=== PATIENT | male | born 1955 | race Hispanic/Latino ===

== ENCOUNTER 2017-02-12 17:23 | Emergency (ER) | payer SELFPAY ==
[2017-02-12 17:23] VITALS: BMI 34.0
[2017-02-12 17:33] VITALS: BP 140/98; PULSE 75; RESP 16; TEMP 98.3; O2SAT 99
--- NOTE | 2017-02-12 17:41 | ED PDOC ---
Lower Extremity Pain/Injury Time Seen by Provider: 02/12/17 17:36 Chief Complaint (Nursing): Lower Extremity Problem/Injury Chief Complaint (Provider): Left calf pain History Per: Patient History/Exam Limitations: no limitations Current Symptoms Are (Timing): Still Present Severity: Moderate Additional Complaint(s): Uvaldo Guadalupe is a 61 y/o male presenting to the ER on 02/12/2017 with complaints of left calf pain onset this morning. Patient reports he heard a popping noise in his left calf, which he believes is a "constance horse," while walking to work this morning at 08:00 am. Pain has not improved since onset, prompting him to seek medical evaluation. Patient is able to ambulate without and bear weight but with pain. He did not take any pain medications prior to arrival. He rates current pain as 7/10. Past Medical History Reviewed: Historical Data, Nursing Documentation, Vital Signs Vital Signs: Last Vital Signs Temp 98.3 F 02/12/17 17:31 Pulse 75 02/12/17 17:31 Resp 16 02/12/17 17:31 BP 140/98 H 02/12/17 17:31 Pulse Ox 99 02/12/17 17:31 - Medical History PMH: Atrial Fibrillation, Diabetes (diet controlled), HTN - Surgical History Other surgeries: left testicle surgery - Family History Family History: States: No Known Family Hx - Living Arrangements Living Arrangements: With Family - Social History Current smoker - smoking cessation education provided: No Alcohol: None Drugs: Denies - Home Medications Home Medications: Ambulatory Orders Medication Instructions Recorded Metformin ER [Glucophage XR] 500 mg PO DAILY 01/03/16 Vitamin B Complex [Super B-50 1 cap PO DAILY 01/03/16 Complex] Aspirin [Ecotrin] 81 mg PO DAILY #0 tabec 01/04/16 Metoprolol Tartrate [Lopressor] 25 mg PO Q12 #0 tab 01/04/16 Polymyxin/Trimethoprim Sulfate 100 drop OD BID #1 bottle 03/08/16 [Polytrim Ophth Soln] Cyclobenzaprine [Cyclobenzaprine 10 mg PO TID PRN #20 tab 02/12/17 HCl] Naproxen [Naprosyn] 500 mg PO BID #20 tab 02/12/17 - Allergies Allergies/Adverse Reactions: Allergies Allergy/AdvReac Type Severity Reaction Status Date / Time Iodine and Iodide Containing Allergy RASH Verified 12/11/15 14:39 Produc Wells Criteria for PE - Wells Criteria for Pulmonary Embolism Clinical Signs and Symptoms of DVT: Yes P.E is #1 Diagnosis, or Equally Likely: No Heart Rate >100: No Immobilization at least 3 days;Surgery previous 4 weeks: No Previous, objectively diagnosed PE or DVT: No Hemoptysis: No Malignancy w/treatment within 6 months, or palliative: No Total Score: 3 Review of Systems ROS Statement: Except As Marked, All Systems Reviewed And Found Negative Constitutional: Negative for: Fever, Chills Cardiovascular: Negative for: Chest Pain Respiratory: Negative for: Cough, Shortness of Breath Gastrointestinal: Negative for: Nausea, Vomiting Musculoskeletal: Positive for: Leg Pain ((+) left calf ) Neurological: Negative for: Weakness, Numbness Physical Exam - Reviewed Nursing Documentation Reviewed: Yes Vital Signs Reviewed: Yes - Physical Exam Appears: Positive for: Non-toxic, No Acute Distress Skin: Positive for: Normal Color. Negative for: Rash Eye Exam: Positive for: Normal appearance Neck: Positive for: Painless ROM. Negative for: Pain On Movement Of Neck Cardiovascular/Chest: Positive for: Regular Rate, Rhythm. Negative for: Murmur Respiratory: Positive for: Normal Breath Sounds. Negative for: Respiratory Distress Extremity: Positive for: Normal ROM (full rom of left knee ), Tenderness ((+) left calf ), Swelling ((+) left calf ) Neurologic/Psych: Positive for: Alert, Oriented, Gait (steady ). Negative for: Motor/Sensory Deficits - ECG O2 Sat by Pulse Oximetry: 99 Pulse Ox Interpretation: Normal - Other Rad Doppler Left leg X-Ray: Read By Radiologist X-Ray Interpretation: no DVT Medical Decision Making Medical Decision Makin:36 Initial Impression- 61 y/o male with left calf pain Initial Plan- * Ultrasound Left leg * Toradol IM * Flexeril PO Doppler is negative for DVT. Patient feels better after meds given. Patient given crutches, rx naprosyn and flexeril and he was referred to ortho conference planner for follow up. See procedure note. RICE instructions given. Documented by Carol Camara, acting as a scribe for Antionette Garrido PA-C All medical record entries made by the Scribe were at my direction and personally dictated by me. I have reviewed the chart and agree that the record accurately reflects my personal performance of the history, physical exam, medical decision making, and the department course for this patient. I have also personally directed, reviewed, and agree with the discharge instructions and disposition. Procedures - Splinting Location: left calf Pre-Made Type: wendi wrap Pre-Proc Neuro Vasc Exam: normal Post-Proc Neuro Vasc Exam: normal Disposition - Clinical Impression Clinical Impression: Strain of calf muscle - Patient ED Disposition Is Patient to be Admitted: No Counseled Patient/Family Regarding: Studies Performed, Diagnosis, Need For Followup, Rx Given - Disposition Referrals: Nikita Moreira III, MD [Staff Provider] - Disposition: Routine/Home Disposition Time: 18:56 Condition: IMPROVED Additional Instructions: Ice, rest and elevate left leg. Take rx meds as directed as needed for pain. Follow up in 1-2 days with orthopedist. Prescriptions: Cyclobenzaprine [Cyclobenzaprine HCl] 10 mg PO TID PRN #20 tab PRN Reason: Muscle Spasm Naproxen [Naprosyn] 500 mg PO BID #20 tab Instructions: Muscle Strain (ED), Muscle Cramp (ED) Forms: [employer] ([place])
--- NOTE | 2017-02-12 18:49 | US ---
Left lower extremity ultrasound. Indication: sudden onset left calf pain Technique: Duplex ultrasound evaluation of the left lower extremity Comparison: None available Findings: There is normal flow, compressibility, and augmentation of the left common femoral, femoral, and popliteal veins. The left posterior tibial veins appear patent and compress normally Impression: No evidence of deep venous thrombosis in the left lower extremity.
== END 2017-02-12 19:07 | disposition home or self-care (01) ==
LOC: H.ER 17:23
DX: M62.838 Other muscle spasm (principal); E11.9 Type 2 diabetes mellitus without complications; I10 Essential (primary) hypertension; Z79.82 Long term (current) use of aspirin; Z79.84 Long term (current) use of oral hypoglycemic drugs; I48.91 Unspecified atrial fibrillation
CPT/HCPCS: 93971; 96372; 99283; J1885

== ENCOUNTER 2017-08-08 20:51 | Emergency (ER) | payer SELFPAY ==
[2017-08-08 20:51] VITALS: BMI 34.0
[2017-08-08 21:20] VITALS: BP 123/53; PULSE 68; RESP 16; TEMP 97.5; O2SAT 100
[2017-08-08] MEDS ORDERED: Naproxen 500 MG TAB PO STA (22:08)
--- NOTE | 2017-08-08 22:11 | ED PDOC ---
Upper Extremity Pain/Injury Time Seen by Provider: 08/08/17 21:24 Chief Complaint (Nursing): Finger,Hand,&Wrist History Per: Patient Additional Complaint(s): Patient presents to the emergency room complaining of pain, redness, swelling to the right third digit for the past few days, symptoms started after going to the nail salon. Reports no trauma, injury, fever, chills, discharge, decrease in range of motion. Past Medical History Vital Signs: Last Vital Signs Temp 97.5 F L 08/08/17 21: Pulse 68 08/08/17 21:18 Resp 16 08/08/17 21:18 BP 123/53 L 08/08/17 21: Pulse Ox 100 08/08/17 21:18 - Medical History PMH: Atrial Fibrillation, Cardia Arrhythmia (tachycardia 5-7 yrs ago; no current meds), Diabetes (diet controlled), HTN (states hx: htn, no meds over past 5 yrs), Hyperthyroidism, Hypothyroidism Denies: Chronic Kidney Disease - Family History Family History: States: Unknown Family Hx - Immunization History Hx Tetanus Toxoid Vaccination: Yes Hx Influenza Vaccination: Yes Hx Pneumococcal Vaccination: Yes - Home Medications Home Medications: Ambulatory Orders Medication Instructions Recorded Metformin ER [Glucophage XR] 500 mg PO DAILY 01/03/16 Vitamin B Complex [Super B-50 1 cap PO DAILY 01/03/16 Complex] Aspirin [Ecotrin] 81 mg PO DAILY #0 tabec 01/04/16 Metoprolol Tartrate [Lopressor] 25 mg PO Q12 #0 tab 01/04/16 Polymyxin/Trimethoprim Sulfate 100 drop OD BID #1 bottle 03/08/16 [Polytrim Ophth Soln] Cyclobenzaprine [Cyclobenzaprine 10 mg PO TID PRN #20 tab 02/12/17 HCl] Naproxen [Naprosyn] 500 mg PO BID #20 tab 02/12/17 Cephalexin [Keflex] 500 mg PO Q6 #28 capsule 08/08/17 - Allergies Allergies/Adverse Reactions: Allergies Allergy/AdvReac Type Severity Reaction Status Date / Time Iodine and Iodide Containing Allergy RASH Verified 12/11/15 14:39 Produc Review of Systems Constitutional: Negative for: Fever, Chills, Weakness Musculoskeletal: Negative for: Neck Pain, Shoulder Pain, Back Pain Skin: Negative for: Rash, Lesions, Jaundice Physical Exam - Physical Exam Comments: GENERAL APPEARANCE: Patient is awake, alert, oriented x 3, in mild painful distress. SKIN: Warm, (-) rash, (-) lesions. UPPER EXTREMITY: (+) Tenderness, (+) swelling, (+) erythema to the nail margin of the R 3rd digit, (-) ecchymosis; (-) crepitus, (-) deformity. Tendon function intact. (-) distal neurovascular deficit. 2 point discrimination intact. Remainder of hand, digits and wrist: (-) injury. - ECG O2 Sat by Pulse Oximetry: 100 Medical Decision Making Medical Decision Making: Prior to procedure "time out" was called in order to confirm the correct patient and procedure - incision and drainage of paronychia to the R 3rd digit. Through aseptic technique, local anesthesia was administered, paronychia was incised and drain of purulent material by PA. Patient tolerated the procedure well. Clean dressing was applied. patient medicated with Keflex 500 mg by mouth, naproxen 500 mg by mouth and tdap IM. Based on history and exam, plan will be for outpatient follow-up. Advised to follow up with primary care physician in 1-2 days without fail. Advised to take medication as prescribed. Return to the emergency room at any time for any new or worsening symptoms. Patient states he fully agrees with and understands discharge instructions. States that he agrees with the plan and disposition. Verbalized and repeated discharge instructions and plan. I have given the patient opportunity to ask any additional questions. Disposition - Clinical Impression Clinical Impression: Paronychia - Patient ED Disposition Is Patient to be Admitted: No Counseled Patient/Family Regarding: Diagnosis, Need For Followup, Rx Given - Disposition Disposition: Routine/Home Disposition Time: 22:13 Condition: STABLE Additional Instructions: Thank you for letting us take care of you today. You were treated for paronychia. The emergency medical care you received today was directed at your acute symptoms. If you were prescribed any medication, please fill it and take as directed. It may take several days for your symptoms to resolve. Return to the Emergency Department if your symptoms worsen, do not improve, or if you have any other problems. Please contact your doctor in 2 days for re-evaluation and follow up. Bring any paperwork you were given at discharge with you along with any medications you are taking to your follow up visit. Our treatment cannot replace ongoing medical care by a primary care provider (PCP) outside of the emergency department. Thank you for allowing the [facility] team to be part of your care today. Prescriptions: Cephalexin [Keflex] 500 mg PO Q6 #28 capsule Instructions: Paronychia (ED) Forms: [employer] ([place]), [facility] ED School/Work Excuse Print Language: TAJIK - PA / [employer] EXECUTIVE / Resident Statement MD/DO has reviewed & agrees with the documentation as recorded.
[2017-08-08] MEDS ORDERED: Naproxen 500 MG TAB PO ONE ×2 (22:14→22:37)
== END 2017-08-08 23:07 | disposition home or self-care (01) ==
LOC: H.ER 20:51
DX: L03.011 Cellulitis of right finger (principal); Z79.84 Long term (current) use of oral hypoglycemic drugs